=== PATIENT | female | born 1990 | race Caucasian/White ===

== ENCOUNTER 2017-06-12 02:04 | Emergency (ER) | payer MEDICAID ==
[~2017-06-12] VITALS: Ht 167.6 cm; Wt 52.0 kg
[~2017-06-12 02:04] MED LIST: Docusate Sod/Senna PO; IBUP600 PO; PRENTAB72 PO
[2017-06-12 02:06] VITALS: BP 125/79; PULSE 84; RESP 18; TEMP 97.9; O2SAT 100
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
[2017-06-12] MEDS ORDERED: ACETAMINOPHEN 325 MG TAB PO ONE (03:30)
== END 2017-06-12 05:16 | disposition home or self-care (01) ==
LOC: NEPC 02:04
DX: O9A.311 Physical abuse complicating pregnancy, first trimester (principal); O9A.211 Injury, poisoning and certain other consequences of external causes complicating pregnancy, first trimester; S00.03XA Contusion of scalp, initial encounter; W03.XXXA Other fall on same level due to collision with another person, initial encounter; Y07.03 Male partner, perpetrator of maltreatment and neglect; Y04.0XXA Assault by unarmed brawl or fight, initial encounter; Z3A.13 13 weeks gestation of pregnancy
CPT/HCPCS: 99282; 99284